=== PATIENT | female | born 1955 | race African-American/Black ===

== ENCOUNTER 2017-02-28 17:48 | Observation (INO) | payer OTHER ==
[~2017-02-28] VITALS: Ht 157.5 cm; Wt 66.7 kg
[~2017-02-28 17:48] MED LIST: METF500T4 PO
[2017-02-28] MEDS ORDERED: METHYLPREDNISOLONE SOD SUCC 125 MG/2 ML VIAL IV STA (18:48)
[2017-02-28] MEDS ORDERED: SODIUM CHLORIDE 0.9% 1,000 ML IV ONE (18:48)
[2017-02-28] MEDS ORDERED: ALBUTEROL (0.083%) 2.5MG/3ML NEB HHN STA (18:48)
[2017-02-28] MEDS ORDERED: IPRATROPIUM BROMIDE (0.02%) 0.5MG/2.5ML NEB HHN STA (18:48)
[2017-02-28 19:57] LABS: BASOPHILS % 0.3 % (0.0-2.0); EOSINOPHILS % 6.4 % (0.0-5.0); HEMATOCRIT. 41.9 % (36.0-48.0); HEMOGLOBIN. 13.9 g/dL (12.0-16.0); LYMPHOCYTES % 32.2 % (20.0-50.0); MEAN CORPUSCULAR HEMOGLOBIN 28.7 pg (28.0-32.0); MEAN CORPUSCULAR VOLUME 86.7 fL (81.0-99.0); MONOCYTES % 9.1 % (2.0-8.0); PLATELET 278 x1000/uL (130-400); RED BLOOD CELL COUNT 4.83 mill/uL (4.2-5.4); RED CELL DISTRIBUTION WIDTH 13.7 % (11.6-14.6)
[2017-02-28 20:15] LABS: CARBON DIOXIDE 31 mEq/L (21-32); CHLORIDE 106 mEq/L (98-107); TROPONIN I < 0.02 ng/mL (0.00-0.04)
[2017-03-01 00:16] VITALS: BP 114/78
[2017-03-01] MEDS ORDERED: ACETAMINOPHEN 325MG TABLET PO PRN (01:00)
[2017-03-01] MEDS ORDERED: TEMAZEPAM 15MG CAPSULE PO PRN (01:00)
[2017-03-01] MEDS ORDERED: DEXTROSE 50% WATER 50ML SYRINGE IV PRN (01:00)
[2017-03-01] MEDS: IPRATROPIUM/ALBUTEROL 0.5-3(2.5)MG/3ML NEB HHN SCH ×4 (01:23→20:42)
[2017-03-01] MEDS: SODIUM CHLORIDE 0.9% 1,000 ML IV SCH ×2 (01:53→11:09)
[2017-03-01 02:44] LABS: BG BASE EXCESS -1.1 mmol/L (-2.0-2.0); BG CARBOXYHEMOGLOBIN 0.6 % (0.5-1.5); BG DEOXYHEMOGLOBIN 8.6 % (0.0-5.0); BG FRACTION INSPIRED OXYGEN 21; BG HCO3 ACT 25.8 mmol/L (22.0-26.0); BG METHEMOGLOBIN 0.9 % (0.0-1.5); BG OXYGEN SATURATION 91.3 % (92.0-98.5); BG OXYHEMOGLOBIN 89.9 % (94.0-97.0); BG PCO2 51.9 mmHg (35.0-45.0); BG PH 7.314 (7.350-7.450); BG SAMPLE SITE RIGHT BRACHIAL; BG TOTAL HEMOGLOBIN 13.8 g/dL (12.0-18.0); BG VENT MODE ROOM AIR
[2017-03-01] MEDS: PROMETHAZINE LIQUID 6.25MG/5ML 118ML PO PRN ×2 (02:45→20:56)
[2017-03-01 04:40] VITALS: BP 105/64
[2017-03-01] MEDS: METHYLPREDNISOLONE SOD SUCC 40 MG/ML VIAL IV SCH ×3 (05:55→21:00)
[2017-03-01] MEDS: BLOOD SUGAR DIAGNOSTIC STRIP TEST SCH ×4 (06:36→20:54)
[2017-03-01 06:49] LABS: BASOPHILS % 0.2 % (0.0-2.0); EOSINOPHILS % 0.1 % (0.0-5.0); HEMATOCRIT. 38.5 % (36.0-48.0); HEMOGLOBIN. 12.7 g/dL (12.0-16.0); LYMPHOCYTES % 16.9 % (20.0-50.0); MEAN CORPUSCULAR HEMOGLOBIN 28.6 pg (28.0-32.0); MEAN CORPUSCULAR VOLUME 86.6 fL (81.0-99.0); MEAN PLATELET VOLUME 8.3 fl (7.4-10.4); MONOCYTES % 2.3 % (2.0-8.0); NEUTROPHILS % 80.5 % (40.0-76.0); PLATELET 251 x1000/uL (130-400); RED BLOOD CELL COUNT 4.45 mill/uL (4.2-5.4); RED CELL DISTRIBUTION WIDTH 13.7 % (11.6-14.6)
[2017-03-01 07:32] LABS: CARBON DIOXIDE 28 mEq/L (21-32); CHLORIDE 108 mEq/L (98-107)
[2017-03-01] MEDS: HEPARIN 5000 UNITS/ML VIAL SUBCUT SCH ×2 (08:06→20:57)
[2017-03-01] MEDS: INSULIN LISPRO 100 UNITS/ML SUBCUT SCH ×4 (08:11→20:54)
[2017-03-01 08:15] VITALS: BP 111/73
[2017-03-01 10:02] LABS: BG BASE EXCESS -0.7 mmol/L (-2.0-2.0); BG CARBOXYHEMOGLOBIN 0.7 % (0.5-1.5); BG DEOXYHEMOGLOBIN 9.1 % (0.0-5.0); BG FRACTION INSPIRED OXYGEN 21; BG HCO3 ACT 26.1 mmol/L (22.0-26.0); BG METHEMOGLOBIN 0.3 % (0.0-1.5); BG OXYGEN SATURATION 90.8 % (92.0-98.5); BG OXYHEMOGLOBIN 89.9 % (94.0-97.0); BG PCO2 51.5 mmHg (35.0-45.0); BG PH 7.322 (7.350-7.450); BG PO2 59.6 mmHg (75.0-100.0); BG SAMPLE SITE RIGHT RADIAL; BG TOTAL HEMOGLOBIN 13.3 g/dL (12.0-18.0); BG VENT MODE ROOM AIR
[2017-03-01 12:00] VITALS: BP 112/68
[2017-03-01 16:00] VITALS: BP 122/81
[2017-03-01 20:00] VITALS: BP 103/78
[2017-03-02] VITALS: BP 110/80
[2017-03-02 04:00] VITALS: BP 129/79
[2017-03-02] MEDS: PROMETHAZINE LIQUID 6.25MG/5ML 118ML PO PRN (05:40)
[2017-03-02] MEDS: METHYLPREDNISOLONE SOD SUCC 40 MG/ML VIAL IV SCH ×2 (05:40→14:34)
[2017-03-02] MEDS: BLOOD SUGAR DIAGNOSTIC STRIP TEST SCH ×2 (06:33→11:34)
[2017-03-02 07:39] VITALS: BP 124/72
[2017-03-02] MEDS: INSULIN LISPRO 100 UNITS/ML SUBCUT SCH ×2 (07:47→11:35)
[2017-03-02] MEDS: HEPARIN 5000 UNITS/ML VIAL SUBCUT SCH (07:48)
[2017-03-02] MEDS: IPRATROPIUM/ALBUTEROL 0.5-3(2.5)MG/3ML NEB HHN SCH ×2 (08:25→14:40)
[2017-03-02 11:36] VITALS: BP 147/84
[2017-03-02 14:47] VITALS: BP 147/78
== END 2017-03-02 15:05 | disposition home or self-care (01) ==
LOC: ER 17:48 → INTOOBSV 20:14 → 6WST 20:14 → EDBEDREQ 20:20 → EDBEDREQTM 20:20 → ENRESERV 21:58
PROVIDERS: ADMIT Internal Medicine; ATTEND Internal Medicine
DX: J44.0 Chronic obstructive pulmonary disease with (acute) lower respiratory infection (principal); J20.9 Acute bronchitis, unspecified; J44.1 Chronic obstructive pulmonary disease with (acute) exacerbation; J96.90 Respiratory failure, unspecified, unspecified whether with hypoxia or hypercapnia; E46 Unspecified protein-calorie malnutrition; E11.9 Type 2 diabetes mellitus without complications; Z87.891 Personal history of nicotine dependence
CPT/HCPCS: 36415; 36600; 71010; 80048; 80053; 82375; 82805; 82962; 83605; 83880; 84484; 85025; 87040; 87070; 93005; 94640; 94644; 96361; 96372; 96374; 96376; 99291; G0378; J1644; J1815; J2920; J2930; J7030; J7611; J7620; Q0169